=== PATIENT | male | born 1990 | race African-American/Black ===

== ENCOUNTER 2020-08-11 13:53 | Emergency (ER) | payer OTHER, SELFPAY ==
--- NOTE | ~2020-08-11 | XR_ITS ---
EXAMINATION: XR ribs RT 2V w CXR 2V INDICATION: Right-sided chest pain after fall TECHNIQUE: PA and lateral views of the chest and 3 views of the right ribs were obtained. COMPARISON: None. FINDINGS: The lungs are free of acute opacities. There is no pleural effusion or pneumothorax. The ca rdiomediastinal silhouette is normal. The visualized bones and soft tissues are unremarkable. No disp laced rib fracture is identified. IMPRESSION: 1. No acute cardiopulmonary abnormality or evidence of displaced rib fracture. Reviewed, dictated and finalized at location A. R SYSTEM SUPERVISOR
--- NOTE | ~2020-08-11 | XR_ITS ---
EXAMINATION: XR hand LT min 3V, XR wrist LT 2V DATE: 08/11/2020 14:35 INDICATION: Ulnar-sided pain at the left hand and wrist post injury TECHNIQUE: 1. Posteroanterior and lateral views of the left wrist were obtained. 2. Dorsal palmar, oblique and lateral views of the left hand were obtained. COMPARISON: None. FINDINGS: Alignment of the hand and wrist are normal. No fracture identified. Joint spaces are normal. Soft t issue swelling about the dorsal aspect of the hand. IMPRESSION: 1. No osseous abnormality. Reviewed, dictated and finalized at location A. M BUNDLER IMPRESSION: 1. No osseous abnormality. IMPRESSION: 1. No osseous abnormality.
[2020-08-11 14:03] VITALS: BP 146/105; PULSE 89; RESP 18; TEMP 36.6; O2SAT 97
--- NOTE | 2020-08-11 14:12 | PC.NURSE ---
[place] police need to be called upon d/c. pt is under arrest
--- NOTE | 2020-08-11 14:19 | ED.UPPEXIN ---
HPI - Extremity Injury (Upper) General Chief Complaint: Extremity Injury, Upper Stated Complaint: L hand pain Time Seen by Provider: 08/11/20 14:18 Source: patient Mode of arrival: ambulatory Limitations: no limitations History of Present Illness HPI narrative: Patient is a 30-year-old male who presents in police custody for evaluation of right-sided rib pain and left hand pain. Patient states that he was being handcuffed from police when he fell forward. Patient states the police did it. Patient denies head trauma or loss of consciousness. He denies neck pain. Patient states that his left hand is swollen and painful on the fourth and fifth fingers. He is left-hand dominant. Patient also reports right-sided rib pain. He denies chest pain or shortness of breath. Related Data Allergies Allergy/AdvReac Type Severity Reaction Status Date / Time No Known Allergies Allergy Verified 08/11/20 14:08 Review of Systems Review of Systems: Narrative: CONSTITUTIONAL: Denies fever CARDIOVASCULAR: Denies chest pain RESPIRATORY: Denies cough or dyspnea. GASTROINTESTINAL: Denies abdominal pain SKIN: Denies rash MUSCULOSKELETAL: Reports right-sided rib pain, reports left hand pain NEUROLOGIC: Denies headache PMFSH Past Medical History Medical History (Updated 08/11/20 @ 15:18 by Radha Hill MD) No pertinent past medical history Surgical History Surgical History (Updated 08/11/20 @ 14:27 by Radha Hill MD) H/O knee surgery Social History Social History (Updated 08/11/20 @ 14:27 by Radha Hill MD) Smoking status: Never smoker Alcohol intake: current Substance use: current Substance use type: marijuana Gender identity (if verbalized by the patient): Male Exam Narrative: Exam Narrative: Nursing note and vitals reviewed. CONSTITUTIONAL: The patient appears well-developed and well-nourished. No distress. HEAD: Normocephalic and atraumatic. EYES: PERRL, EOMI, normal conjunctiva, anicteric EARS: External ears clear bilaterally, no hemotympanum MOUTH: OP clear, no erythema, exudates NECK: midline trachea, supple, FROM. No midline cervical spinal tenderness. No step-offs or deformities. CARDIOVASCULAR: Normal rate, regular rhythm, normal heart sounds and intact distal pulses. No murmurs, rubs, gallops. PULMONARY: Effort normal and breath sounds normal. No respiratory distress. The patient has no wheezes, rales, ronchi. Mild chest wall tenderness that reproduces pain at the right mid axillary line about T5, T6, T7, T8 without crepitus or ecchymoses. ABDOMINAL: Soft. Nontender, nondistended. No palpable masses EXTREMITIES:: moving all extremities symmetrically. -RUE: No deformity. Normal ROM at shoulder, elbow, wrist, and hand. Sensation intact M/U/R. Pulse 2+. -LUE: Normal ROM at shoulder, elbow, wrist. Patient without deformity, but mild edema left fourth and fifth metacarpals with tenderness. Sensation intact M/U/R. Pulse 2+ -RLE: No deformity. Normal ROM at hip, knee, ankle. Sensation intact distally. -LLE: No deformity. Normal ROM at hip, knee, ankle. Sensation intact distally. NEUROLOGY: The patient is alert and oriented to person, place, and time. CN II-XII Course Vital Signs Vital signs: Vital Signs Temperature 36.6 C 08/11/20 14:03 Pulse Rate 89 08/11/20 14:03 Respiratory Rate 18 08/11/20 14:03 Blood Pressure 146/105 H 08/11/20 14:03 Pulse Oximetry 97 08/11/20 14:03 Temperature 36.6 C 08/11/20 14:03 Pulse Rate 89 08/11/20 14:03 Respiratory Rate 18 08/11/20 14:03 Blood Pressure 146/105 H 08/11/20 14:03 Pulse Oximetry 97 08/11/20 14:03 MDM - Extremity Injury (Upper) MDM Narrative Medical decision making narrative: Patient presented for evaluation of hand pain, rib pain. The time of assessment, ABCs are intact and vital signs are stable. Mild edema and tenderness with left hand exam but no gross deformity. Neurovascularly intact. No crepitus.
[2020-08-11] MEDS: oxyCODONE/ACETAMINOPHEN (*CRX) 5-325 MG TABLET 1 TABLET PO (15:13)
== END 2020-08-11 15:48 | disposition home or self-care (01) ==
PROVIDERS: Emergency Provider Emergency Medicine
DX: S66.912A Strain of unspecified muscle, fascia and tendon at wrist and hand level, left hand, initial encounter (principal); S20.211A Contusion of right front wall of thorax, initial encounter; W00.0XXA Fall on same level due to ice and snow, initial encounter
CPT/HCPCS: 71046; 71100; 73100; 73130; 99284; A9270

== ENCOUNTER 2021-04-07 21:28 | Emergency (ER) | payer OTHER, SELFPAY ==
[2021-04-07 21:48] VITALS: BP 144/88; PULSE 71; RESP 18; TEMP 36.9; O2SAT 98
[2021-04-08 01:13] VITALS: BP 146/95; PULSE 73; RESP 18; TEMP 36.4; O2SAT 98
--- NOTE | 2021-04-08 01:57 | ED.SKABFB ---
HPI - Skin/Abscess/Foreign Bdy General Chief complaint: Skin/Abscess/Foreign Body Stated complaint: boil in armpit Time Seen by Provider: 04/08/21 01:38 Source: RN notes reviewed History of Present Illness HPI narrative: Patient presents emergency department from home for left axilla abscess. States it has been present for the past 3 days progressively getting larger patient notes that area of redness into the left axilla denies any drainage from the wound denies any fevers or chills Related Data Allergies Allergy/AdvReac Type Severity Reaction Status Date / Time No Known Allergies Allergy Verified 04/08/21 01:18 Review of Systems Review of Systems: Gen.: Denies fevers or chills Musculoskeletal: Denies any joint or muscle pain Neuro: Denies numbness, tingling, weakness Skin: See HPI Endo: Denies DM PMFSH Past Medical History Medical History No pertinent past medical history Surgical History Surgical History (Updated 08/11/20 @ 14:27 by Radha Hill MD) H/O knee surgery Social History Social History Smoking status: Never smoker Alcohol intake: current Substance use: current Substance use type: marijuana Gender identity (if verbalized by the patient): Male Exam Narrative: APPEARANCE: No acute distress, nontoxic, resting in bed Eyes: EOMI HEENT: Normocephalic, atraumatic, RESPIRATORY: No respiratory distress MUSCULOSKELETAl: No tenderness left shoulder elbow or wrist with full range of motion radial pulse 2+ neurovascular intact NEURO: Awake and alert. Following commands, speech normal, no focal deficits SKIN:: Warm, dry. Normal left axilla with a 2 cm abscess that is raised with fluctuance and no active drainage Course Course Emergency Course: Discussed with patient results of workup and diagnosis. Discussed need for follow-up with primary care, proper use of medication, and reasons to return to the emergency department. Patient understands and agrees to current treatment plan Vital Signs Vital signs: Vital Signs Temperature 98.4 F 04/07/21 21:48 Pulse Rate 71 04/07/21 21:48 Respiratory Rate 18 04/07/21 21:48 Blood Pressure 144/88 H 08/28/21 21:48 Pulse Oximetry 98 08/28/21 21:48 Temperature 97.5 F L 04/08/21 01:13 Pulse Rate 73 04/08/21 01:13 Respiratory Rate 18 04/08/21 01:13 Blood Pressure 146/95 H 04/08/21 01:13 Pulse Oximetry 98 04/08/21 01:13 Procedures Abscess I/D other: Abcess I&D Additional Comments: Verbal consent was obtained prior to procedure. The abscess was cleaned with Betadine and lidocaine 1% with epi was used for anesthesia. The abscess was incised with an 11 blade. There was return of approximately 4-5 mL of thick purulent drainage. Curved hemostats were used to break up loculations, the wound was irrigated with normal saline. Following a sterile dressing was applied. Patient tolerated the procedure well Discharge Plan Discharge Clinical Impression: Abscess of axilla, left Patient Disposition: Home, Self-Care Condition: Stable Instructions: Antibiotic Form, Abscess Incision and Drainage (DC) Additional Instructions: Return for bleeding from the wound increasing sign of infection or any other symptoms of concern Prescriptions: New cephalexin 500 mg capsule 500 mg PO Q8H 10 Days Qty: 30 RF: 0 ibuprofen [IBU] 600 mg tablet 600 mg PO Q6H PRN (Reason: pain) Qty: 20 RF: 0 No Action lidocaine 4 % adhesive patch,medicated 1 patch TOPICAL Q24H PRN (Reason: pain) 10 Days Qty: 10 RF: 0 ibuprofen 400 mg tablet 400 mg PO TID PRN (Reason: fever or pain) 10 Days Qty: 30 RF: 0 acetaminophen 500 mg capsule 500 mg PO Q6H PRN (Reason: fever or pain) Qty: 30 RF: 0 Follow-up/Referrals: Erickson Cabrera MD [Physician] - (Follow-up in 1-2 days for further on-call physician treatment and evalua
[2021-04-08] MEDS: IBUPROFEN 600 MG TABLET PO (02:17)
[2021-04-08] MEDS: CEPHALEXIN 500 MG CAPSULE PO (02:18)
--- NOTE | 2021-04-08 02:20 | PC.NURSE ---
Cyst drained by ERP. Site assessed by RN, CSM intact. Covered by gauze and bandage.
[2021-04-08 02:23] VITALS: BP 158/90; PULSE 65; RESP 18; O2SAT 98
== END 2021-04-08 02:26 | disposition home or self-care (01) ==
PROVIDERS: Emergency Provider Emergency Medicine
DX: L02.412 Cutaneous abscess of left axilla (principal)
CPT/HCPCS: 10060; 99283; A9270